=== PATIENT | female | born 1960 | race Caucasian/White ===

== ENCOUNTER 2024-07-22 10:01 | Outpatient (CLI) | payer MEDICARE, MEDICAID | END 2024-07-22 10:02 | disposition home or self-care (01) | LOC: CSHMRI 10:01 | PROVIDERS: ATTEND Nurse Practitioner Family | DX: S86.912D Strain of unspecified muscle(s) and tendon(s) at lower leg level, left leg, subsequent encounter (principal); S82.145A Nondisplaced bicondylar fracture of left tibia, initial encounter for closed fracture; S83.242A Other tear of medial meniscus, current injury, left knee, initial encounter; M94.8X6 Other specified disorders of cartilage, lower leg; M25.462 Effusion, left knee ==